=== PATIENT | female | born 1985 | race Caucasian/White ===

== ENCOUNTER 2018-12-08 07:11 | Day surgery (SDC) | payer OTHER ==
[2018-12-07 15:53] VITALS: Ht 160 cm; Wt 48.2 kg
[2018-12-08] VITALS (29 sets, daily range): BP systolic 87–125; BP diastolic 45–74; PULSE 56–88; RESP 13–46
[~2018-12-08] VITALS: Ht 160 cm; Wt 48.2 kg
[~2018-12-08 07:11] MED LIST: CEFAZOLIN 2 GM/50 ML (PMX) 50 ML IVPB ONE; SOD CHLORIDE 0.9% 1,000 ML IV SCH
[2018-12-08] MEDS ORDERED: SUCCINYLCHOLINE CHLORIDE 100 MG/5 ML SYG IV ONE (08:29)
[2018-12-08] MEDS ORDERED: MIDAZOLAM 1 MG/ML 2 ML INJ ONE (08:29)
[2018-12-08] MEDS ORDERED: PROPOFOL 20 ML ONE (08:29)
[2018-12-08] MEDS ORDERED: FENTAnyl 50 MCG/ML VIAL ONE (08:29)
[2018-12-08] MEDS ORDERED: CEFAZOLIN 1 GM INJ ONE (08:29)
[2018-12-08] MEDS ORDERED: LIDOCAINE 2% (SDV) 5 ML INJ ONE (08:29)
[2018-12-08] MEDS ORDERED: MEPERIDINE 25 MG INJ IV PRN (08:30)
[2018-12-08] MEDS ORDERED: HYDROmorphONE 1 MG/5 ML IV SYRINGE IV PRN ×3 (08:30)
[2018-12-08] MEDS ORDERED: OXYCODONE/ACETAMINOPHEN (5/325) TAB PO PRN ×2 (08:30)
[2018-12-08] MEDS ORDERED: ONDANSETRON 4 MG INJ IV PRN (08:30)
[2018-12-08] MEDS ORDERED: BUPIVACAINE 0.5%/EPI (SDV) 30 ML INJ ONE (09:05)
[2018-12-08] MEDS ORDERED: DEXAMETHASONE 4 MG/ML 5 ML INJ ONE (09:24)
[2018-12-08] MEDS ORDERED: FAMOTIDINE 20 MG INJ ONE (09:24)
[2018-12-08] MEDS ORDERED: ONDANSETRON 4 MG INJ ONE (09:24)
[2018-12-08] MEDS ORDERED: METOCLOPRAMIDE 10 MG INJ ONE (09:24)
[2018-12-08] MEDS ORDERED: LACTATED RINGER'S 1,000 ML IV SCH (10:15)
[2018-12-08] MEDS ORDERED: ACETAMINOPHEN 325 MG TAB PO PRN (10:30)
[2018-12-08] MEDS ORDERED: SOD CHLORIDE 0.9% 500 ML IV STA (11:15)
[2018-12-08] MEDS ORDERED: EPHEDrine 25 MG/5 ML SYG IV STA (11:17)
== END 2018-12-08 12:44 | disposition home or self-care (01) ==
LOC: SDS 07:11
PROVIDERS: ATTEND Thoracic Surgery (Cardiothoracic Vascular Surgery)
DX: D21.21 Benign neoplasm of connective and other soft tissue of right lower limb, including hip (principal)
CPT/HCPCS: 88307; 88341; 88342; J0690; J1100; J2175; J2250; J2405; J2765; J3010